=== PATIENT | male | born 1975 | race African-American/Black ===

== ENCOUNTER → 2016-05-30 09:58 | Outpatient (CLI) | payer OTHER ==
[~2016-05-30 09:58] MED LIST: AMOXICILLIN500 M1 PO; FLAGYL500 MG; HYDROCHLOROTHIA25 MG PO; LISINOPRIL5 MG PO; NEXIUM20 MG PO; PENTASA500 MG PO; PRAVASTATIN SOD10 MG PO; PREDNISONE10 MG PO; TENORMIN25 MG PO
[2016-05-30 10:15] LABS: BASOPHILS 0.2 % (0.0-2.0); EOSINOPHILS 1.5 % (0-7); HEMATOCRIT 44.3 % (42.0-54.0); HEMOGLOBIN 14.5 g/dL (13.5-17.5); IMMATURE GRANULOCYTES 0.3 % (0-5); LYMPHOCYTES 21.1 % (15-50); MCH 29.5 pg (26.0-34.0); MCHC 32.7 g/dL (31.0-37.0); MONOCYTES 8.2 % (2-11); NEUTROPHILS 68.7 % (40-80); PLATELET COUNT 263 10x3/uL (130-400); RBC 4.92 10x6/uL (4.20-6.10); RDW 13.9 % (11.5-14.5); WBC 6.6 10x3/uL (4.8-10.8)
[2016-05-30 10:29] LABS: ALBUMIN 3.3 g/dL (3.4-5.0); ANION GAP 9.8 mmol/L (8-16); BILIRUBIN - TOTAL 0.7 mg/dL (0.2-1.3); CALCIUM 9.1 mg/dL (8.5-10.1); CARBON DIOXIDE 30.2 mmol/L (21.0-32.0); CREATININE - SERUM 1.3 mg/dL (0.6-1.3); PROTEIN - SERUM 7.6 g/dL (6.4-8.2)
[2016-05-30 11:18] LABS: ERYTHROCYTE SEDIMENTATION RATE 12 mm/hr (0-15)
== END | disposition home or self-care (01) ==
LOC: D.LAB 09:15
PROVIDERS: Internal Medicine Gastroenterology
DX: K50.90 Crohn's disease, unspecified, without complications (principal)

== ENCOUNTER 2016-06-05 09:22 | Outpatient (CLI) | payer OTHER ==
[~2016-06-05 09:22] MED LIST changes: -HYDROCHLOROTHIA25 MG PO; -LISINOPRIL5 MG PO; -PRAVASTATIN SOD10 MG PO
[2016-06-05] MEDS ORDERED: LISINOPRIL5 MG PO (10:34)
[2016-06-05] MEDS ORDERED: HYDROCHLOROTHIA25 MG PO (10:34)
[2016-06-05 10:39] LABS: BASOPHILS 0.2 % (0.0-2.0); EOSINOPHILS 2.8 % (0-7); HEMATOCRIT 42.4 % (42.0-54.0); HEMOGLOBIN 13.5 g/dL (13.5-17.5); IMMATURE GRANULOCYTES 0.3 % (0-5); LYMPHOCYTES 26.4 % (15-50); MCH 29.2 pg (26.0-34.0); MCHC 31.8 g/dL (31.0-37.0); MCV 91.8 fL (80.0-100.0); MEAN PLATELET VOLUME 10.4 fL (7.4-10.4); MONOCYTES 8.2 % (2-11); NEUTROPHILS 62.1 % (40-80); PLATELET COUNT 285 10x3/uL (130-400); RBC 4.62 10x6/uL (4.20-6.10); RDW 13.9 % (11.5-14.5); WBC 6.4 10x3/uL (4.8-10.8)
[2016-06-05 10:42] VITALS: BP 131/73; Wt 100.5 kg
--- NOTE | 2016-06-05 10:44 | NUR ---
1015-PERIPHERAL IV STARTED TO RIGHT WRIST TIMES ONE ATTEMPT WITH 22G CATHETER. SALINE LOCK INITIATED AT TIME TIME.
[2016-06-05 10:59] LABS: ALBUMIN 3.1 g/dL (3.4-5.0); ANION GAP 12.5 mmol/L (8-16); BILIRUBIN - TOTAL 0.5 mg/dL (0.2-1.3); CALCIUM 8.4 mg/dL (8.5-10.1); CARBON DIOXIDE 27.6 mmol/L (21.0-32.0); CREATININE - SERUM 1.3 mg/dL (0.6-1.3); POTASSIUM - SERUM 4.1 mmol/L (3.5-5.1); PROTEIN - SERUM 6.8 g/dL (6.4-8.2)
--- NOTE | 2016-06-05 16:34 | NUR ---
1125 REPORT FROM WES NOGUEIRA RN, STATES HAS GIVEN TYLENOL TO PT. AND STARTED IV. PREMEDICATED WITH BENADRYL 50MG IV, REMICADE ORDERED INITIATED VIA PUMP. PT'S SPOUSE AT SIDE. DATASCOPE MONITORING. SEE VITAL SIGNS SHEET FOR VITAL SIGNS.
--- NOTE | 2016-06-05 16:36 | NUR ---
1205 LUNCH ORDEREDAND SERVED
--- NOTE | 2016-06-05 18:34 | NUR ---
1430 INFUSION HAS COMPLETED WITH PT. DENYING PROBLEMS WITH INFUSION. IV DC'D WITH CATH INTACT. 1430 RELEASED AMB.
== END 2016-06-05 14:40 | disposition home or self-care (01) ==
LOC: D.OPS 09:22
PROVIDERS: Internal Medicine Gastroenterology
DX: K50.90 Crohn's disease, unspecified, without complications (principal)

== ENCOUNTER 2016-06-19 09:26 | Outpatient (CLI) | payer OTHER ==
[~2016-06-19] VITALS: Ht 180.3 cm; Wt 100.5 kg
[~2016-06-19 09:26] MED LIST changes: +HYDROCHLOROTHIA25 MG PO; +LISINOPRIL5 MG PO
[2016-06-19] MEDS ORDERED: PRAVASTATIN SOD10 MG PO (10:14)
[2016-06-19 10:19] VITALS: BP 128/83; Ht 180.3 cm; Wt 100.5 kg
[2016-06-19 10:21] LABS: BASOPHILS 0.3 % (0.0-2.0); EOSINOPHILS 1.6 % (0-7); HEMATOCRIT 46.5 % (42.0-54.0); HEMOGLOBIN 15.1 g/dL (13.5-17.5); IMMATURE GRANULOCYTES 0.2 % (0-5); LYMPHOCYTES 27.6 % (15-50); MCH 29.5 pg (26.0-34.0); MCHC 32.5 g/dL (31.0-37.0); MCV 90.8 fL (80.0-100.0); MEAN PLATELET VOLUME 10.8 fL (7.4-10.4); MONOCYTES 9.1 % (2-11); NEUTROPHILS 61.2 % (40-80); PLATELET COUNT 273 10x3/uL (130-400); RBC 5.12 10x6/uL (4.20-6.10); RDW 14.1 % (11.5-14.5); WBC 6.3 10x3/uL (4.8-10.8)
[2016-06-19 10:32] LABS: ALBUMIN 3.6 g/dL (3.4-5.0); ANION GAP 10.9 mmol/L (8-16); BILIRUBIN - TOTAL 0.88 mg/dL (0.2-1.3); CALCIUM 9.3 mg/dL (8.5-10.1); CARBON DIOXIDE 29.5 mmol/L (21.0-32.0); CREATININE - SERUM 1.2 mg/dL (0.6-1.3); POTASSIUM - SERUM 4.4 mmol/L (3.5-5.1); PROTEIN - SERUM 7.7 g/dL (6.4-8.2)
--- NOTE | 2016-06-19 10:51 | NUR ---
1030-20 GAUGE IV STARTED IN RIGHT ARM WITHOUT ANY DIFFICULTY. SECURED WITH TEGADERM AND FLUSHED WELL. LAB OBTAINED WHEN STARTING THE IV PRE MEDS GIVEN ORDERED 1045-REMICADE INFUSION STARTED VIA MED PUMP AT 125CC/HR PT DOING WELL, DENIES ANY NEEDS OR CONCERNS AT THIS TIME. FAMILY AT BEDSIDE AND CALL LIGHT IN REACH
--- NOTE | 2016-06-19 12:05 | NUR ---
1145 ROOM CHECK. DENIES PROBLEMS WITH INFUSION. IV SITE PATENT. V.S. 128/77 60 18 97.8. LABS HAVE BEEN FAXED TO OFFICE.
--- NOTE | 2016-06-19 16:01 | NUR ---
1335 IV DC'D WITH CATH INTACT BY TRICIA GOLD RN. PT. DC'D BY TRICIA GOLD RN.
== END 2016-06-19 13:35 | disposition home or self-care (01) ==
LOC: D.OPS 09:26
PROVIDERS: Internal Medicine Gastroenterology
DX: K50.90 Crohn's disease, unspecified, without complications (principal)

== ENCOUNTER → 2016-07-03 09:19 | Outpatient (CLI) | payer OTHER ==
[2016-06-19 10:19] VITALS: BMI 30.9
[~2016-07-03 09:19] MED LIST changes: +PRAVASTATIN SOD10 MG PO
[2016-07-03 09:46] LABS: BASOPHILS 0.6 % (0.0-2.0); EOSINOPHILS 1.2 % (0-7); HEMATOCRIT 42.6 % (42.0-54.0); HEMOGLOBIN 13.4 g/dL (13.5-17.5); IMMATURE GRANULOCYTES 0.2 % (0-5); LYMPHOCYTES 32.5 % (15-50); MCH 28.9 pg (26.0-34.0); MCHC 31.5 g/dL (31.0-37.0); MCV 91.8 fL (80.0-100.0); MEAN PLATELET VOLUME 9.6 fL (7.4-10.4); MONOCYTES 7.2 % (2-11); NEUTROPHILS 58.3 % (40-80); RBC 4.64 10x6/uL (4.20-6.10); RDW 14.3 % (11.5-14.5); WBC 5.1 10x3/uL (4.8-10.8)
[2016-07-03 09:48] LABS: PLATELET COUNT 211 10x3/uL (130-400)
[2016-07-03 10:02] LABS: ALBUMIN 3.1 g/dL (3.4-5.0); BILIRUBIN - TOTAL 0.46 mg/dL (0.2-1.3); CALCIUM 8.6 mg/dL (8.5-10.1); CARBON DIOXIDE 29.9 mmol/L (21.0-32.0); CREATININE - SERUM 1.3 mg/dL (0.6-1.3); POTASSIUM - SERUM 3.9 mmol/L (3.5-5.1); PROTEIN - SERUM 7.1 g/dL (6.4-8.2)
== END | disposition home or self-care (01) ==
LOC: D.LAB 09:19
PROVIDERS: Internal Medicine Gastroenterology
DX: K50.90 Crohn's disease, unspecified, without complications (principal)

== ENCOUNTER 2016-07-17 09:24 | Outpatient (CLI) | payer OTHER ==
[~2016-07-17] VITALS: Ht 180.3 cm; Wt 100.5 kg
[2016-07-17 10:09] VITALS: BP 154/88; Ht 180.3 cm; Wt 100.5 kg
--- NOTE | 2016-07-17 10:16 | NUR ---
0940 IV STARTED LEFT ARM 22 GAUGE GOOD BLOOD RETURN, NO REDNESS OR SWELLING BLOOD ALSO OBTAINED. SALINE LOCKED IV. ASSESSMENT COMPLETED. [employer] SERVED. V/S TAKEN. EXPLAINED WILL TREAT WITH BENADRYL AND TYLENOL IODINE ALLERGY. REMICADE FOR CHRON'S DISEASE.
--- NOTE | 2016-07-17 10:18 | NUR ---
1018 WAITING FOR REMIDADE INFUSION AND MEDS TO BE PUT IN COMPUTER. CALLED LAB TO PICK LAB UP.
[2016-07-17 10:57] LABS: BASOPHILS 0.4 % (0-2); EOSINOPHILS 0.7 % (0-7); HEMATOCRIT 45.2 % (42.0-54.0); HEMOGLOBIN 14.7 g/dL (13.5-17.5); IMMATURE GRANULOCYTES 0.2 % (0-5); LYMPHOCYTES 29.3 % (15-50); MCH 29.9 pg (26.0-34.0); MCHC 32.5 g/dL (31.0-37.0); MCV 91.9 fL (80.0-100.0); MEAN PLATELET VOLUME 11.2 fL (7.4-10.4); MONOCYTES 7.8 % (2-11); NEUTROPHILS 61.6 % (40-80); PLATELET COUNT 239 10x3/uL (130-400); RBC 4.92 10x6/uL (4.20-6.10); RDW 14.6 % (11.5-14.5); WBC 5.5 10x3/uL (4.8-10.8)
--- NOTE | 2016-07-17 11:29 | NUR ---
1125 REMICADE INFUSION STARTED AND EXPLAINED REASON FOR REMIDADE FOR CHRONS AND INSTRUCTED TO CALL FOR SOB IYCHING OR ANY UNUSUAL SYMTOMS. AT 125 ML HR LEFT ARM IV NO REDNESS OR SWELLING.
[2016-07-17 11:33] LABS: ALBUMIN 3.5 g/dL (3.4-5.0); ANION GAP 9.5 mmol/L (8-16); BILIRUBIN - TOTAL 0.69 mg/dL (0.2-1.3); CALCIUM 9.3 mg/dL (8.5-10.1); CARBON DIOXIDE 30.4 mmol/L (21.0-32.0); CREATININE - SERUM 1.3 mg/dL (0.6-1.3); POTASSIUM - SERUM 3.9 mmol/L (3.5-5.1); PROTEIN - SERUM 7.3 g/dL (6.4-8.2)
--- NOTE | 2016-07-17 12:09 | NUR ---
1209 TRAY SERVED TOLERATED REMICADE RT ARM IV SITE NO REDNESS OR SELLING.
--- NOTE | 2016-07-17 17:41 | NUR ---
1400--IV DC'D. CHUYITA RUFFIN 1410--DISCHARGE INSTRUCTIONS GIVEN, PT VERBALIZES UNDERSTANDING. PT OFF UNIT AMBULATORY. CHUYITA RUFFIN
== END 2016-07-17 14:10 | disposition home or self-care (01) ==
LOC: D.OPS 09:24
PROVIDERS: Internal Medicine Gastroenterology
DX: K50.90 Crohn's disease, unspecified, without complications (principal)

== ENCOUNTER → 2016-07-31 08:58 | Outpatient (CLI) | payer OTHER ==
[2016-07-17 10:09] VITALS: BMI 30.9
[2016-07-31 09:16] LABS: BASOPHILS 0.2 % (0-2); EOSINOPHILS 1.1 % (0-7); HEMATOCRIT 43.6 % (42.0-54.0); HEMOGLOBIN 14.1 g/dL (13.5-17.5); LYMPHOCYTES 34.2 % (15-50); MCH 29.5 pg (26.0-34.0); MCHC 32.3 g/dL (31.0-37.0); MCV 91.2 fL (80.0-100.0); MEAN PLATELET VOLUME 10.2 fL (7.4-10.4); NEUTROPHILS 58.5 % (40-80); PLATELET COUNT 205 10x3/uL (130-400); RBC 4.78 10x6/uL (4.20-6.10); RDW 14.2 % (11.5-14.5); WBC 5.3 10x3/uL (4.8-10.8)
[2016-07-31 09:30] LABS: ALBUMIN 3.3 g/dL (3.4-5.0); ANION GAP 9.8 mmol/L (8-16); BILIRUBIN - TOTAL 0.5 mg/dL (0.2-1.3); CALCIUM 9.1 mg/dL (8.5-10.1); CREATININE - SERUM 1.3 mg/dL (0.6-1.3); POTASSIUM - SERUM 3.8 mmol/L (3.5-5.1); PROTEIN - SERUM 7.2 g/dL (6.4-8.2)
== END | disposition home or self-care (01) ==
LOC: D.LAB 08:58
PROVIDERS: Internal Medicine Gastroenterology
DX: K50.90 Crohn's disease, unspecified, without complications (principal)

== ENCOUNTER → 2016-09-20 12:56 | Outpatient (CLI) | payer OTHER ==
[2016-07-17 10:09] VITALS: BMI 30.9
[2016-09-20 13:24] LABS: BASOPHILS 0.2 % (0-2); EOSINOPHILS 1.1 % (0-7); HEMATOCRIT 44.3 % (42.0-54.0); HEMOGLOBIN 14.7 g/dL (13.5-17.5); IMMATURE GRANULOCYTES 0.2 % (0-5); LYMPHOCYTES 27.7 % (15-50); MCH 29.7 pg (26.0-34.0); MCHC 33.2 g/dL (31.0-37.0); MCV 89.5 fL (80.0-100.0); MEAN PLATELET VOLUME 9.5 fL (7.4-10.4); NEUTROPHILS 61.8 % (40-80); PLATELET COUNT 245 10x3/uL (130-400); RBC 4.95 10x6/uL (4.20-6.10); RDW 13.5 % (11.5-14.5); WBC 5.6 10x3/uL (4.8-10.8)
[2016-09-20 13:44] LABS: ALBUMIN 3.3 g/dL (3.4-5.0); ANION GAP 12.8 mmol/L (8-16); BILIRUBIN - TOTAL 0.47 mg/dL (0.2-1.3); CALCIUM 8.7 mg/dL (8.5-10.1); CARBON DIOXIDE 27.8 mmol/L (21.0-32.0); CREATININE - SERUM 1.3 mg/dL (0.6-1.3); POTASSIUM - SERUM 3.6 mmol/L (3.5-5.1); PROTEIN - SERUM 7.5 g/dL (6.4-8.2)
== END | disposition home or self-care (01) ==
LOC: D.LAB 08-14 13:30
PROVIDERS: Internal Medicine Gastroenterology
DX: K50.90 Crohn's disease, unspecified, without complications (principal)

== ENCOUNTER → 2017-01-03 10:48 | Outpatient (CLI) | payer OTHER ==
[2016-07-17 10:09] VITALS: BMI 30.9
[2017-01-03 11:20] LABS: BASOPHILS 0.2 % (0-2); EOSINOPHILS 1.1 % (0-7); HEMATOCRIT 44.1 % (42.0-54.0); HEMOGLOBIN 14.3 g/dL (13.5-17.5); IMMATURE GRANULOCYTES 0.2 % (0-5); LYMPHOCYTES 31.8 % (15-50); MCH 29.7 pg (26.0-34.0); MCHC 32.4 g/dL (31.0-37.0); MCV 91.5 fL (80.0-100.0); MEAN PLATELET VOLUME 10.1 fL (7.4-10.4); NEUTROPHILS 57.7 % (40-80); PLATELET COUNT 249 10x3/uL (130-400); RBC 4.82 10x6/uL (4.20-6.10); RDW 14.6 % (11.5-14.5); WBC 5.6 10x3/uL (4.8-10.8)
[2017-01-03 11:47] LABS: ALBUMIN 3.2 g/dL (3.4-5.0); ANION GAP 9.3 mmol/L (8-16); BILIRUBIN - TOTAL 0.72 mg/dL (0.2-1.3); CALCIUM 9.1 mg/dL (8.5-10.1); CARBON DIOXIDE 30.7 mmol/L (21.0-32.0); CREATININE - SERUM 1.3 mg/dL (0.6-1.3); PROTEIN - SERUM 7.5 g/dL (6.4-8.2)
[2017-01-03 14:03] LABS: ERYTHROCYTE SEDIMENTATION RATE 30 mm/hr (0-15)
== END | disposition home or self-care (01) ==
LOC: D.AB 10:48
PROVIDERS: Internal Medicine Gastroenterology
DX: K50.90 Crohn's disease, unspecified, without complications (principal)

== ENCOUNTER → 2017-05-01 08:49 | Outpatient (CLI) | payer OTHER ==
[2016-07-17 10:09] VITALS: BMI 30.9
[2017-05-01 09:20] LABS: BASOPHILS 0.1 % (0-2); EOSINOPHILS 1.6 % (0-7); HEMATOCRIT 43.6 % (42.0-54.0); HEMOGLOBIN 14.3 g/dL (13.5-17.5); IMMATURE GRANULOCYTES 0.3 % (0-5); MCH 28.9 pg (26.0-34.0); MCHC 32.8 g/dL (31.0-37.0); MCV 88.1 fL (80.0-100.0); MEAN PLATELET VOLUME 9.7 fL (7.4-10.4); MONOCYTES 8.9 % (2-11); NEUTROPHILS 70.1 % (40-80); RBC 4.95 10x6/uL (4.20-6.10); WBC 7.6 10x3/uL (4.8-10.8)
[2017-05-01 09:23] LABS: PLATELET COUNT 324 10x3/uL (130-400)
[2017-05-01 09:52] LABS: ALBUMIN 3.1 g/dL (3.4-5.0); ANION GAP 9.3 mmol/L (8-16); BILIRUBIN - TOTAL 0.43 mg/dL (0.2-1.3); CALCIUM 9.1 mg/dL (8.5-10.1); CARBON DIOXIDE 29.6 mmol/L (21.0-32.0); CREATININE - SERUM 1.3 mg/dL (0.6-1.3); POTASSIUM - SERUM 3.9 mmol/L (3.5-5.1); PROTEIN - SERUM 7.6 g/dL (6.4-8.2)
[2017-05-01 11:20] LABS: ERYTHROCYTE SEDIMENTATION RATE 23 mm/hr (0-15)
== END | disposition home or self-care (01) ==
LOC: D.LAB 08:49
PROVIDERS: Internal Medicine Gastroenterology
DX: K50.90 Crohn's disease, unspecified, without complications (principal)

== ENCOUNTER → 2018-05-06 08:03 | Outpatient (CLI) | payer OTHER ==
[2016-07-17 10:09] VITALS: BMI 30.9
== END | disposition home or self-care (01) ==
LOC: D.RAD 08:00
DX: K50.90 Crohn's disease, unspecified, without complications (principal)